=== PATIENT | female | born 1995 | race Caucasian/White ===

== ENCOUNTER 2016-12-29 12:27 | Emergency (ER) | payer MEDICAID ==
[~2016-12-29] VITALS: Ht 152.4 cm; Wt 79.5 kg
[~2016-12-29 12:27] MED LIST: ACET325T33 PO; DICY10CA60 PO; FERR-31 PO; IBUP-1542 PO; LEVO125T75 PO; NITR-58 PO; PNV1TABL43 PO
[2016-12-29 12:43] VITALS: Ht 152.4 cm; Wt 79.5 kg
[2016-12-29] MEDS ORDERED: ONDANSETRON (ODT) 4 MG TAB ODT STA (14:44)
--- NOTE | 2016-12-29 14:44 | ERD ---
ER Documentation Chief Complaint Date/Time DATE: 12/29/16 TIME: 14:40 Chief Complaint HEADACHE ASSOCIATED W NAUSEA X 1 DAY. HX OF MIGRANES HPI 21-year-old female who presented emergency room for frontal sinus headache for 1 day. Stated that she feels nauseous but no vomiting. She also complains of nasal congestion and nonproductive cough for about 2 days. She denies history of migraine on history taking. Stated that her headache started gradually with unknown specific date and time of onset. Stated that she's not sure if she's and if she could get a test. Denies head trauma, this is the worst headache of her life, loss of consciousness, dizziness, blurry vision, changes in vision, photophobia, facial pain, ear pain, throat pain, difficulty swallowing, neck pain, shoulder pain, chest pain, cough, hemoptysis, abdominal pain, back pain, loss of appetite, nausea, vomiting, hematochezia, diarrhea, constipation, urinary symptoms, bladder and bowel incontinences, extremity weakness, extremity tenderness, numbness or tingling sensation, difficulty walking, recent travel, recent exposure to illness, recent antibiotic use in the last 3 months, fever, chills. Allergy: NKDA. PMH: Anemia, thyroid Family medical history: AO LMP: "couple of weeks ago." I'm not sure if I'm ." Medications: Denies. Surgery: Denies. Primary Social History: Not working at this time. Denies smoking, use of alcohol, use of illegal drugs. ROS All systems reviewed and are negative except as per history of present illness. Medications Home Meds Active Scripts Nitrofurantoin Monohyd Macrocr* (Macrobid*) 100 Mg Capsr, 100 MG PO BID for 7 Days, CAP Prov:SUSANGINO C 08/08/16 Ibuprofen* (Motrin*) 600 Mg Tab, 600 MG PO Q6, #30 TAB Prov:SUSANLINUSGINO C 08/08/16 Acetaminophen* (Tylenol*) 325 Mg Tablet, 1 TAB PO Q6 Y for PAIN AND OR ELEVATED TEMP, #20 TAB Prov:ALEXA DENNISON PA-C 06/02/16 Dicyclomine Hcl* (Bentyl*) 10 Mg Capsule, 10 MG PO QID, #30 CAP Prov:ALEXA DENNISON PA-C 06/02/16 Reported Medications Ferrous Sulfate (Iron Supplement) 1 Tab Tablet, 1 TAB PO DAILY 06/26/15 Levothyroxine Sodium* (Levothyroxine Sodium*) 125 Mcg Tablet, 125 MCG PO AC BREAKFAST, TAB 05/28/15 Vit/Fe Fumarate/Fa* ( Vitamin Tablet*) 1 Tab Tablet, 1 TAB PO DAILY, TAB 05/28/15 Allergies Allergies: Coded Allergies: No Known Drug Allergies (Verified Allergy, Unknown, 07/07/15) PMhx/Soc History of Surgery: No Anesthesia Reaction: No Hx Neurological Disorder: No Hx Respiratory Disorders: No Hx Cardiac Disorders: No Hx Psychiatric Problems: No Hx Miscellaneous Medical Probl: No Hx Alcohol Use: No Hx Substance Use: No Hx Tobacco Use: No Physical Exam Vitals Vital Signs Date Time Temp Pulse Resp B/P Pulse Ox O2 Delivery O2 Flow Rate FiO2 12/29/16 12:43 98.2 87 20 117/71 99 Physical Exam CONSTITUTIONAL: Well-appearing; well-nourished; in no apparent distress. HEAD: Normocephalic; atraumatic. EYES: Conjunctiva clear, sclera non-icteric, EOM intact. PERRLA. Ears: Hearing intact. EACs clear, TMs non-bulging, non-inflamed, translucent & mobile, ossicles normal appearance, No obstructions, no erythema, no discharges Nose: No obstructions. No polyps. No external lesions. Mucosa non-inflamed. No external lesions, septum and turbinates normal. No rhinorrhea. No discharges. Frontal sinus is non-tender to palpation. Maxillary sinus is non-tender to palpation. MOUTH: Moist mucous membranes, no lesion, no obstructions, no vesicles, no thrush, patent airway Throat: Uvula in midline. Right tonsil is +1 with no erythema, no exudate. Left tonsil is +1 with no erythema, no exudate. Tolerating secretions well. Good gag reflex. Patent airway. Neck: Supple, without lesions, bruits, or adenopathy. No mass. Thyroid non- enlarged and non-tender to palpation. CHEST: Symmetrical chest. Respirations even and not labored. No retractions noted. CARDIOVASCULAR: Normal S1, S2. RRR. No murmurs, gallops. RESPIRATORY: Normal chest excursion with respiration; breath sounds clear and equal bilaterally; no wheezes, rhonchi, or rales. Breathing even and unlabored. Speaking in clear, full, and complete sentences w/ ease. ABDOMEN: Normal bowel sounds normal. Soft, round, non-distended, non-guarding, no tenderness, no rebound, no organomegaly, no masses, no pulsating abdominal mass. No hernia. No peritoneal signs. : No CVA tenderness. BACK: Symmetrical shoulder. Spine is midline without deformity, tenderness. No evidence of trauma or deformity. PELVIS: Stable pelvis. No evidence of trauma or deformity. MUSCULOSKELETAL: Normal gait and station. No misalignment, asymmetry, crepitation, defects, tenderness, masses, effusions, decreased range of motion, instability, atrophy or abnormal strength or tone in the head, neck, spine, ribs , pelvis or extremities. No calf tenderness. NEUROVASCULAR: Distal pulses are present. Pedal pulse are present, equal, and normal. Capillary refills are < 2 seconds. NEUROLOGIC: Alert and oriented x4. Speaks full and clear sentences. Cranial Nerves II-XII normal. Sensation to pain, touch, and proprioception normal. Grossly unremarkable. No neurologic deficits. Romberg test is negative. PSYCHOLOGICAL: The patients mood and manner are appropriate. No hallucinations , delusions. Not SI. Not HI. Has the capacity to decide for self SKIN: Normal for age and ethnicity; warm; dry; good turgor; no apparent lesions or exudates. No rashes, hives, discoloration. Intact. Results 24 hrs Laboratory Tests Test 12/29/16 14:52 Bedside Urine pH (LAB) 5.5 Bedside Urine Protein (LAB) Negative Bedside Urine Glucose (UA) Negative Bedside Urine Ketones (LAB) Negative Bedside Urine Blood Negative Bedside Urine Nitrite (LAB) Negative Bedside Urine Leukocyte Esterase (L Trace Current Medications Medications (Trade) Dose Ordered Sig/Gavin Route PRN Reason Start Time Stop Time Status Last Admin Dose Admin Acetaminophen (Tylenol Tab) 650 mg ONCE ONCE PO 12/29/16 15:00 12/29/16 15:01 DC 12/29/16 14:44 Meclizine HCl (Antivert) 25 mg ONCE ONCE PO 12/29/16 15:00 12/29/16 15:00 DC 12/29/16 14:44 Ondansetron HCl (Zofran Odt) 4 mg ONCE STAT ODT 12/29/16 14:44 12/29/16 14:45 DC 12/29/16 15:02 Meclizine HCl (Antivert) 25 mg ONCE ONCE PO 12/29/16 15:00 12/29/16 15:01 DC Procedures/MDM Examination: Please see physical examination. Disease process, medical treatment was explained to the patient and family member. They verbalized understanding and agreed with the diagnostic tests, medical treatment, and follow-up care. POC urine : Treatment: Zofran, Tylenol, meclizine. Re-evaluation: Denies headache, dizziness, blurry vision, pain in the right globe, neck pain, shoulder pain, chest pain, abdominal pain. No nausea and vomiting. No neurological deficits. No abdominal tenderness. Romberg test is negative. Consultation: none. Differential diagnosis: Subarachnoid hemorrhage versus migraine versus headache dizziness Medical decision makin-year-old female who presented emergency room for frontal sinus headache for 1 day. Stated that she feels nauseous but no vomiting. She also complains of nasal congestion and nonproductive cough for about 2 days. She denies history of migraine on history taking. Stated that her headache started gradually with unknown specific date and time of onset. Stated that she's not sure if she's and if she could get a test. Patient's complaint, patient's history about her complaint, my physical findings, diagnostic test results, my reevaluation are consistent with my diagnosis of dizziness, headache. Medications prescribed are the following: Tylenol. Zofran. Meclizine. Patient and family member are made aware of the side effects and adverse reactions of the medications prescribed. Instructed on when to seek emergent and medical attention in case allergic/anaphylactic reactions or severe side effects and or adverse reactions to medications. Patient and family member verbalized understanding. Patient instructed Instructed to follow-up with his PCP in 24-48 hours. Instructed to Call 911 for chest pain, shortness of breath. Advised to come back here in ED as soon as possible for severity of symptoms which includes but not limited to: any new symptoms; shortness of breath/difficulty of breathing; cardiovascular changes; severe gastrointestinal symptoms; signs and symptoms of bleeding and or infection; signs of compartment syndrome/neurovascular changes; neurological changes/deficits. Patient and family member verbalized understanding. Upon discharge, patient is alert and oriented x 4, speaks full and clear sentences, denies pain, has no neurological deficits, has no neurovascular deficits, difficulty of breathing. Breathing even and unlabored. Lung sounds are clear to auscultation. Not in distress. Appears comfortable. Ambulatory with steady gait. Appears satisfied with care provided here in ED. Departure Diagnosis: Primary Impression: Headache Condition: Good Additional Instructions: Patient instructed Instructed to follow-up with his PCP in 24-48 hours. Instructed to Call 911 for chest pain, shortness of breath. Advised to come back here in ED as soon as possible for severity of symptoms which includes but not limited to: any new symptoms; shortness of breath/difficulty of breathing; cardiovascular changes; severe gastrointestinal symptoms; signs and symptoms of bleeding and or infection; signs of compartment syndrome/neurovascular changes; neurological changes/deficits. Patient and family member verbalized understanding. SANTOS CALI Dec 29, 2016 14:44
[2016-12-29 14:52] LABS: URINE BLOOD (Dip) POC Negative (NEGATIVE)
[2016-12-29] MEDS ORDERED: MECLIZINE 12.5 MG TAB PO ONE ×2 (15:00)
[2016-12-29] MEDS ORDERED: ACETAMINOPHEN 325 MG TAB PO ONE (15:00)
[2016-12-29] MEDS ORDERED: ONDA4TAB14 PO (15:12)
[2016-12-29] MEDS ORDERED: ACET500C5 PO (15:13)
[2016-12-29] MEDS ORDERED: MECL-77 PO (15:13)
[2016-12-29 15:35] VITALS: BP 123/65; PULSE 80; RESP 18
== END 2016-12-29 15:36 | disposition home or self-care (01) ==
LOC: FTE 12:27
DX: R51 Headache (principal); R11.0 Nausea
CPT/HCPCS: 81003; Z7502; Z7610; 99283

== ENCOUNTER 2017-07-09 11:19 | Emergency (ER) | payer MEDICAID ==
[~2017-07-09] VITALS: Ht 157.5 cm; Wt 83.0 kg
[~2017-07-09 11:19] MED LIST changes: +ACET500C5 PO; +MECL-77 PO; +ONDA4TAB14 PO
[2017-07-09 11:22] VITALS: Ht 157.5 cm; Wt 83.0 kg
[2017-07-09] MEDS ORDERED: ONDANSETRON (ODT) 4 MG TAB ODT STA (12:47)
[2017-07-09] MEDS ORDERED: IBUPROFEN 600 MG TAB PO ONE (13:00)
--- NOTE | 2017-07-09 13:00 | ERD ---
ER Documentation Chief Complaint Chief Complaint HAS SUPRA PUBIC PAIN DIZZINESS AND N/V HPI 21-year-old female presents with suprapubic sharp abdominal pain that woke her up out of sleep earlier this morning associated with dizziness and 2 episodes of nausea vomiting. Took ibuprofen which helped her symptoms. Patient pain states that her pain is localized, and reports associated vomiting that occurred twice this morning which was nonbloody nonbilious, and she has had 2 days of diarrhea. Those have not included blood or mucus. No abnormal vaginal discharge, fevers or chills. ROS All systems reviewed and are negative except as per history of present illness. Medications Home Meds Active Scripts Ondansetron (Ondansetron Odt) 4 Mg Tab.rapdis, 4 MG PO Q6H Y for NAUSEA AND/OR VOMITING, #10 TAB Prov:LIBERTY GARZA PA-C 07/09/17 Dicyclomine Hcl* (Bentyl*) 10 Mg Capsule, 10 MG PO QID, #20 CAP Prov:LIBERTY GARZA PA-C 07/09/17 Metronidazole* (Flagyl*) 500 Mg Tablet, 500 MG PO TID for 7 Days, TAB Prov:LIBERTY GARZA PA-C 07/09/17 Ciprofloxacin Hcl* (Ciprofloxacin Hcl*) 500 Mg Tablet, 500 MG PO BID for 7 Days , TAB Prov:LIBERTY GARZA PA-C 07/09/17 Acetaminophen* (Tylophen*) 500 Mg Capsule, 1 CAP PO Q6H Y for PAIN AND OR ELEVATED TEMP, #20 CAP Prov:SANTOS CALI 12/29/16 Meclizine Hcl* (Meclizine Hcl*) 25 Mg Tablet, 25 MG PO Q8H Y for DIZZINESS, #14 TAB Prov:SANTOS CALI 12/29/16 Ondansetron (Ondansetron Odt) 4 Mg Tab.rapdis, 4 MG PO Q6H Y for NAUSEA AND/OR VOMITING, #20 TAB Prov:SANTOS CALI 12/29/16 Nitrofurantoin Monohyd Macrocr* (Macrobid*) 100 Mg Capsr, 100 MG PO BID for 7 Days, CAP Prov:GINO DAVIS 08/08/16 Ibuprofen* (Motrin*) 600 Mg Tab, 600 MG PO Q6, #30 TAB Prov:GINO DAVIS 08/08/16 Acetaminophen* (Tylenol*) 325 Mg Tablet, 1 TAB PO Q6 Y for PAIN AND OR ELEVATED TEMP, #20 TAB Prov:DENNISONALEXA Stephanie PALACIOS 06/02/16 Dicyclomine Hcl* (Bentyl*) 10 Mg Capsule, 10 MG PO QID, #30 CAP Prov:DENNISONALEXA Brown PA-C 06/02/16 Reported Medications Ferrous Sulfate (Iron Supplement) 1 Tab Tablet, 1 TAB PO DAILY 06/26/15 Levothyroxine Sodium* (Levothyroxine Sodium*) 125 Mcg Tablet, 125 MCG PO AC BREAKFAST, TAB 05/28/15 Vit/Fe Fumarate/Fa* ( Vitamin Tablet*) 1 Tab Tablet, 1 TAB PO DAILY, TAB 05/28/15 Allergies Allergies: Coded Allergies: No Known Drug Allergies (Verified Allergy, Unknown, 07/07/15) PMhx/Soc History of Surgery: No Anesthesia Reaction: No Hx Neurological Disorder: No Hx Respiratory Disorders: No Hx Cardiac Disorders: No Hx Psychiatric Problems: No Hx Miscellaneous Medical Probl: Yes (ANEMIA/THYROID D/S (UNK WHICH ONE)) Hx Alcohol Use: No Hx Substance Use: No Hx Tobacco Use: No Smoking Status: Never smoker Physical Exam Vitals Vital Signs Date Time Temp Pulse Resp B/P Pulse Ox O2 Delivery O2 Flow Rate FiO2 07/09/17 14:57 98.1 87 16 135/70 99 Room Air 07/09/17 11:22 98.0 78 18 107/58 96 Physical Exam General: Well-developed, well-nourished. The patient appears in no acute distress. HEENT: Head is normocephalic, atraumatic. No scleral icterus. Neck: Supple. Nontender. Lungs: Clear to auscultation. Normal air movement. Heart: Regular rate and rhythm. S1 and S2 are normal. No murmurs, gallops, or rubs. Abdomen: Soft, suprapubic tenderness with palpation, there is no rebound pain or guarding, no masses, nondistended. Bowel sounds are normoactive. Extremities: No clubbing or cyanosis. Normal pulses. Moving extremities x 4. No weakness. Neurologic: Alert and oriented 3. No focal deficits. Skin: Normal turgor. No rash or lesions. Result Diagram: 07/09/17 1252 07/09/17 1252 Results 24 hrs Laboratory Tests Test 07/09/17 12:52 07/09/17 12:59 White Blood Count 6.710^3/ul Red Blood Count 4.2010^6/ul Hemoglobin 12.4g/dl Hematocrit 36.9% Mean Corpuscular Volume 87.9fl Mean Corpuscular Hemoglobin 29.5pg Mean Corpuscular Hemoglobin Concent 33.6g/dl Red Cell Distribution Width 13.2% Platelet Count 04273^3/UL Mean Platelet Volume 10.5fl Neutrophils % 51.7% Lymphocytes % 37.9% Monocytes % 7.3% Eosinophils % 2.1% Basophils % 0.7% Nucleated Red Blood Cells % 0.0/100WBC Neutrophils # 3.410^3/ul Lymphocytes # 2.510^3/ul Monocytes # 0.510^3/ul Eosinophils # 0.110^3/ul Basophils # 0.110^3/ul Nucleated Red Blood Cells # 0.010^3/ul Sodium Level 144mmol/L Potassium Level 4.0mmol/L Chloride Level 109mmol/L Carbon Dioxide Level 23mmol/L Anion Gap 16 Blood Urea Nitrogen 9mg/dl Creatinine 0.64mg/dl Glucose Level 91mg/dl Calcium Level 9.2mg/dl Total Bilirubin 0.3mg/dl Direct Bilirubin 0.00mg/dl Indirect Bilirubin 0.3mg/dl Aspartate Amino Transf (AST/SGOT) 26IU/L Alanine Aminotransferase (ALT/SGPT) 27IU/L Alkaline Phosphatase 95IU/L Total Protein 8.0g/dl Albumin 4.5g/dl Globulin 3.50g/dl Albumin/Globulin Ratio 1.28 Lipase 32U/L Serum HCG, Qualitative NEGATIVE Urine Color YELLOW Urine Clarity SLIGHTLY CLOUDY Urine pH 5.0 Urine Specific Rupert 1.030 Urine Ketones NEGATIVEmg/dL Urine Nitrite NEGATIVEmg/dL Urine Bilirubin NEGATIVEmg/dL Urine Urobilinogen NEGATIVEmg/dL Urine Leukocyte Esterase NEGATIVELeu/ul Urine Microscopic RBC 2/HPF Urine Microscopic WBC 2/HPF Urine Squamous Epithelial Cells MODERATE/HPF Urine Bacteria FEW/HPF Urine Mucus MODERATE/HPF Urine Hemoglobin NEGATIVEmg/dL Urine Glucose NEGATIVEmg/dL Urine Total Protein NEGATIVEmg/dl Current Medications Medications (Trade) Dose Ordered Sig/Gavin Route PRN Reason Start Time Stop Time Status Last Admin Dose Admin Ondansetron HCl (Zofran Odt) 4 mg ONCE STAT ODT 07/09/17 12:47 07/09/17 12:48 DC 07/09/17 13:01 Ibuprofen (Motrin) 600 mg ONCE ONCE PO 07/09/17 13:00 07/09/17 13:01 DC 07/09/17 13:01 DIAGNOSTIC IMAGING REPORT Patient: SHAKA GALLEGOS : 1995 Age: 21 Sex: F MR #: [id number] DOS: 07/09/17 1246 Ordering MD: LIBERTY GARZA PA-C Location: [facility] [place] Room/Bed: PROCEDURE: CT Abdomen and pelvis without contrast. CLINICAL INDICATION: Left lower quadrant abdominal pain and suprapubic pain. TECHNIQUE: CT scan of the abdomen and pelvis without contrast was performed on a multidetector high-resolution CT scan. . Coronal and sagittal reformatted images were obtained from the axial source images. Standard CT scan of the abdomen pelvis without contrast protocols were performed. The total exam CTDI equals 20.75 mGy and the total exam DLP equals 1319.14 mGy- cm. One or more of the following dose reduction techniques were used: - Automated exposure control. - Adjustment of the mA and/or kV according to patient size. Use of iterative reconstruction technique. COMPARISON: CT abdomen pelvis 06/02/2016 FINDINGS: The previous epiploic appendagitis involving the left quadrant of the abdomen is no longer seen. There is minimal diverticular changes of the distal descending and proximal sigmoid colon but no CT evidence of diverticulitis. Remainder the colon is unremarkable. The appendix is unremarkable. The stomach and small bowel are unremarkable. There is trace free fluid in the cul-de-sac. No other abdominal free fluid. Negative for intra-abdominal free air, abscess or lymphadenopathy. Note however that there are multiple prominent nonspecific lymph nodes in the right lower quadrant mesentery may represent mesenteric lymphadenitis. The kidneys are normal in size without calcified renal calculi hydronephrosis or intra renal masses bilaterally. Urinary bladder is unremarkable. The uterus and a. Anteflexed but otherwise unremarkable. No adnexal masses. The liver spleen pancreas adrenal glands and gallbladder are unremarkable. No evidence of biliary ductal dilation. The aorta unremarkable. Abdominal pelvic wall unremarkable. Lung bases unremarkable. Osseous structures are unremarkable. IMPRESSION: 1. Trace fluid in the cul-de-sac without other abdominal free fluid, free air, abscesses or lymphadenopathy. 2. Prominent multiple nonspecific lymph nodes in the right lower quadrant of the abdomen may represent mesenteric lymphadenitis. 3. Minimal diverticular changes of the distal descending and proximal sigmoid colon but no CT evidence of diverticulitis. Unremarkable appendix. 4. No calcified urinary calculi or obstructive uropathy. RPTAT:AAJJ Physician Bran Date Time Electronically viewed and signed by Physician Bran on 07/09/2017 13:43 BM/ Procedures/MDM Course: She was given ibuprofen 600 mg, Zofran 4 mg ODT. Medical decision makin-year-old female presents with sharp suprapubic abdominal pain with vomiting and diarrhea patient CT abdomen pelvis shows diverticular changes, without evidence of diverticulitis, no abscess, perforation, no evidence of appendicitis, with associated lymphadenopathy in the right lower quadrant. Given that patient is symptomatic with diarrhea with left lower quadrant pain, patient will be treated with for early diverticulitis. She at this time is afebrile, stable with controlled pain, and is stable for outpatient management. The case was reviewed and discussed with Dr. Cazares who agrees with the plan of care including labs, treatment, and advanced imaging as appropriate. Departure Diagnosis: Primary Impression: Diarrhea Additional Impression: Abdominal pain Condition: LIBERTY Lieberman PA-C Jul 09, 2017 13:00
[2017-07-09 13:29] LABS: BASOPHIL # 0.1 10^3/ul (0.0-0.1); BASOPHILS % 0.7 % (0.0-2.0); EOSINOPHILS # 0.1 10^3/ul (0.0-0.5); EOSINOPHILS % 2.1 % (0.0-7.0); HEMATOCRIT 36.9 % (37.0-47.0); HEMOGLOBIN 12.4 g/dl (12.0-16.0); LYMPHOCYTES # 2.5 10^3/ul (0.8-2.9); LYMPHOCYTES % 37.9 % (15.0-51.0); MEAN CORPUSCULAR HEMOGLOBIN 29.5 pg (29.0-33.0); MEAN CORPUSCULAR HGB CONC 33.6 g/dl (32.0-37.0); MEAN CORPUSCULAR VOLUME 87.9 fl (82.0-101.0); MEAN PLATELET VOLUME 10.5 fl (7.4-10.4); MONOCYTE # 0.5 10^3/ul (0.3-0.9); MONOCYTES % 7.3 % (0.0-11.0); NEUTROPHIL # 3.4 10^3/ul (1.6-7.5); NEUTROPHILS % 51.7 % (39.0-77.0); PLATELET COUNT 325 10^3/UL (140-415); RED CELL DISTRIBUTION WIDTH 13.2 % (11.5-14.5); WHITE BLOOD COUNT 6.7 10^3/ul (4.8-10.8)
--- NOTE | 2017-07-09 13:43 | RADRPT ---
PROCEDURE: CT Abdomen and pelvis without contrast. CLINICAL INDICATION: Left lower quadrant abdominal pain and suprapubic pain. TECHNIQUE: CT scan of the abdomen and pelvis without contrast was performed on a multidetector hig h-resolution CT scan. . Coronal and sagittal reformatted images were obtained from the axial [facility] e images. Standard CT scan of the abdomen pelvis without contrast protocols were performed. The total exam CTDI equals 20.75 mGy and the total exam DLP equals 1319.14 mGy-cm. One or more of the following dose reduction techniques were used: - Automated exposure control. - Adjustment of the mA and/or kV according to patient size. Use of iterative reconstruction technique. COMPARISON: CT abdomen pelvis 06/02/2016 FINDINGS: The previous epiploic appendagitis involving the left quadrant of the abdomen is no longer seen. The re is minimal diverticular changes of the distal descending and proximal sigmoid colon but no CT dottie dence of diverticulitis. Remainder the colon is unremarkable. The appendix is unremarkable. The stom ach and small bowel are unremarkable. There is trace free fluid in the cul-de-sac. No other abdominal free fluid. Negative for intra-abdom inal free air, abscess or lymphadenopathy. Note however that there are multiple prominent nonspecifi c lymph nodes in the right lower quadrant mesentery may represent mesenteric lymphadenitis. The kidneys are normal in size without calcified renal calculi hydronephrosis or intra renal masses bilaterally. Urinary bladder is unremarkable. The uterus and a. Anteflexed but otherwise unremarkable. No adnexal masses. The liver spleen pancreas adrenal glands and gallbladder are unremarkable. No evidence of biliary du ctal dilation. The aorta unremarkable. Abdominal pelvic wall unremarkable. Lung bases unremarkable. Osseous structu res are unremarkable. IMPRESSION: 1. Trace fluid in the cul-de-sac without other abdominal free fluid, free air, abscesses or lymphad enopathy. 2. Prominent multiple nonspecific lymph nodes in the right lower quadrant of the abdomen may repres ent mesenteric lymphadenitis. 3. Minimal diverticular changes of the distal descending and proximal sigmoid colon but no CT evide nce of diverticulitis. Unremarkable appendix. 4. No calcified urinary calculi or obstructive uropathy. RPTAT:AAJJ Greg Fernandez Physician Date Time Electronically viewed and signed by Greg Fernandez Physician on 07/09/2017 13:43 BM/
[2017-07-09 13:52] LABS: ALBUMIN 4.5 g/dl (3.3-4.9); ALBUMIN/GLOBULIN RATIO 1.28; BILIRUBIN,INDIRECT 0.3 mg/dl (0-1.1); BILIRUBIN,TOTAL 0.3 mg/dl (0.2-1.3); CALCIUM 9.2 mg/dl (8.4-10.2); CREATININE 0.64 mg/dl (0.44-1.00)
[2017-07-09 14:11] LABS: ADD UMIC NO; UR ASCORBIC ACID NEGATIVE (NEGATIVE); UR BACTERIA FEW /HPF (NONE SEEN); UR BILIRUBIN (Dip) NEGATIVE (NEGATIVE); UR BLOOD (Dip) NEGATIVE (NEGATIVE); UR CLARITY SLIGHTLY CLOUDY (CLEAR); UR COLOR YELLOW (YELLOW); UR GLUCOSE (Dip) NEGATIVE (NEGATIVE); UR KETONES (Dip) NEGATIVE (NEGATIVE); UR LEUKOCYTE ESTERASE (Dip) NEGATIVE Leu/ul (NEGATIVE); UR MUCUS MODERATE /HPF (NONE SEEN); UR NITRITE (Dip) NEGATIVE (NEGATIVE); UR RBC 2 /HPF (0-5); UR SQUAMOUS EPITHELIAL CELL MODERATE /HPF (FEW); UR TOTAL PROTEIN (Dip) NEGATIVE (NEGATIVE); UR UROBILINOGEN (Dip) NEGATIVE (NEGATIVE)
[2017-07-09] MEDS ORDERED: DICY10CA60 PO (14:41)
[2017-07-09] MEDS ORDERED: METR500T PO (14:41)
[2017-07-09] MEDS ORDERED: CIPR500T4 PO (14:41)
[2017-07-09] MEDS ORDERED: ONDA4TAB14 PO (14:41)
[2017-07-09 14:57] VITALS: BP 135/70; PULSE 87; RESP 16; TEMP 98.1
== END 2017-07-09 14:58 | disposition home or self-care (01) ==
LOC: FTE 11:19
DX: R19.7 Diarrhea, unspecified (principal)
CPT/HCPCS: 36415; 74176; 80053; 81001; 83690; 84703; 85025; Z7502; Z7610; 81003

== ENCOUNTER 2017-10-02 17:56 | Emergency (ER) | END 2017-10-02 21:49 | disposition home or self-care (01) ==

== ENCOUNTER 2018-03-30 17:45 | Emergency (ER) | END 2018-03-30 21:01 | disposition home or self-care (01) ==

== ENCOUNTER 2018-06-02 17:42 | Outpatient (CLI) | END 2018-06-03 00:30 | disposition home or self-care (01) ==

== ENCOUNTER 2018-07-01 19:33 | Outpatient (CLI) | END 2018-07-01 23:00 | disposition home or self-care (01) ==

== ENCOUNTER 2018-08-21 17:45 | Outpatient (CLI) | END 2018-08-21 21:36 | disposition home or self-care (01) ==

== ENCOUNTER 2018-08-23 09:57 | Inpatient (IN) | END 2018-08-25 14:25 | disposition home or self-care (01) | DRG 788 ==

== ENCOUNTER 2019-01-05 14:59 | Emergency (ER) | payer OTHER ==
[~2019-01-05] VITALS: Ht 152.4 cm; Wt 87.0 kg
[~2019-01-05 14:59] MED LIST changes: -ACET325T33 PO; -ACET500C5 PO; -DICY10CA60 PO; -FERR-31 PO; -IBUP-1542 PO; -LEVO125T75 PO; +LEVO200T6 PO; -MECL-77 PO; -NITR-58 PO; -ONDA4TAB14 PO
[2019-01-05 15:09] VITALS: BP 112/59; PULSE 84; RESP 19; Ht 152.4 cm; Wt 87.0 kg
[2019-01-05] MEDS ORDERED: SOD CHLORIDE 0.9% 1,000 ML IV STA (16:01)
[2019-01-05] MEDS ORDERED: METOCLOPRAMIDE 10 MG INJ IV STA (16:01)
[2019-01-05] MEDS ORDERED: METO10TA92 PO (17:01)
--- NOTE | 2019-01-05 17:05 | ERD ---
ER Documentation Chief Complaint Chief Complaint GENERALIZED ABD PAIN, NAUSEA SINCE THIS AM ; LMP 10/28/18 HPI 23-year-old female presents with vomiting and epigastric pain since this morning. Vomit is nonbilious nonbloody. She is approximately 8 weeks by dates. She has vaginal bleeding or lower abdominal pain or urinary complaints. She is a G2 para 1. ROS All systems reviewed and are negative except as per history of present illness. Medications Home Meds Active Scripts Metoclopramide* (Reglan*) 10 Mg Tablet, 10 MG PO Q6 PRN for NAUSEA AND/OR VOMITING, #20 TAB Prov:GIANNA COVARRUBIAS MD 01/05/19 Reported Medications Levothyroxine Sodium* (Levothyroxine Sodium*) 200 Mcg Tablet, 200 MCG PO BEFORE BREAKFAST, #30 TAB 08/23/18 Vit/Fe Fumarate/Fa* ( Vitamin Tablet*) 1 Tab Tablet, 1 TAB PO DAILY, TAB 05/28/15 Allergies Allergies: Coded Allergies: No Known Drug Allergies (Verified Allergy, Unknown, 01/05/19) PMhx/Soc History of Surgery: Yes ( ) Anesthesia Reaction: No Hx Neurological Disorder: No Hx Respiratory Disorders: No Hx Cardiac Disorders: No Hx Psychiatric Problems: No Hx Miscellaneous Medical Probl: Yes (ANEMIA , hypothyroid ) Hx Alcohol Use: No Hx Substance Use: No Hx Tobacco Use: No Smoking Status: Never smoker FmHx Family History: No diabetes, No coronary disease, No other Physical Exam Vitals Vital Signs Date Temp Pulse Resp B/P (MAP) Pulse Ox O2 O2 Flow FiO2 Time Delivery Rate 01/05/19 84 19 112/59 97 15:09 (76) Physical Exam Const: No acute distress Head: Atraumatic Eyes: Normal Conjunctiva ENT: Normal External Ears, Nose and Mouth. Neck: Full range of motion. No meningismus. Resp: Clear to auscultation bilaterally Cardio: Regular rate and rhythm, no murmurs Abd: Soft, minimal epigastric tenderness. No tenderness McBurney's point no Harrington sign., non distended. Normal bowel sounds Skin: No petechiae or rashes Back: No midline or flank tenderness Ext: No cyanosis, or edema Neur: Awake and alert Psych: Normal Mood and Affect Result Diagram: 01/05/19 1628 01/05/19 1628 Results 24 hrs Laboratory Tests Test 01/05/19 16:19 01/05/19 16:28 POC Beta HCG, Qualitative POSITIVE White Blood Count 10.2 10^3/ul Red Blood Count 4.70 10^6/ul Hemoglobin 12.5 g/dl Hematocrit 38.5 % Mean Corpuscular Volume 81.9 fl Mean Corpuscular Hemoglobin 26.6 pg Mean Corpuscular Hemoglobin Concent 32.5 g/dl Red Cell Distribution Width 14.8 % Platelet Count 372 10^3/UL Mean Platelet Volume 11.1 fl Immature Granulocytes % 0.300 % Neutrophils % 75.6 % Lymphocytes % 16.9 % Monocytes % 5.7 % Eosinophils % 1.3 % Basophils % 0.2 % Nucleated Red Blood Cells % 0.0 /100WBC Immature Granulocytes # 0.030 10^3/ul Neutrophils # 7.7 10^3/ul Lymphocytes # 1.7 10^3/ul Monocytes # 0.6 10^3/ul Eosinophils # 0.1 10^3/ul Basophils # 0.0 10^3/ul Nucleated Red Blood Cells # 0.0 10^3/ul Urine Color YELLOW Urine Clarity SLIGHTLY CLOUDY Urine pH 6.0 Urine Specific [place] 1.020 Urine Ketones 1+ mg/dL Urine Nitrite NEGATIVE mg/dL Urine Bilirubin NEGATIVE mg/dL Urine Urobilinogen NEGATIVE mg/dL Urine Leukocyte Esterase NEGATIVE [place]/ul Urine Microscopic RBC 1 /HPF Urine Microscopic WBC 1 /HPF Urine Squamous Epithelial Cells FEW /HPF Urine Hemoglobin NEGATIVE mg/dL Urine Glucose NEGATIVE mg/dL Urine Total Protein NEGATIVE mg/dl Sodium Level 138 mmol/L Potassium Level 3.9 mmol/L Chloride Level 102 mmol/L Carbon Dioxide Level 22 mmol/L Anion Gap 14 Blood Urea Nitrogen 7 mg/dl Creatinine 0.42 mg/dl Est Glomerular Filtrat Rate mL/min > 60 mL/min Glucose Level 86 mg/dl Calcium Level 9.9 mg/dl Total Bilirubin 0.3 mg/dl Direct Bilirubin 0.00 mg/dl Indirect Bilirubin 0.3 mg/dl Aspartate Amino Transf (AST/SGOT) 38 IU/L Alanine Aminotransferase (ALT/SGPT) 20 IU/L Alkaline Phosphatase 81 IU/L Total Protein 8.4 g/dl Albumin 4.6 g/dl Globulin 3.80 g/dl Albumin/Globulin Ratio 1.21 Lipase 27 U/L Current Medications Medications Dose Sig/Gavin Start Time Status Last (Trade) Ordered Route PRN Stop Time Admin Dose Reason Admin Sodium 1,000 ml @ Q1H STAT 01/05/19 DC 01/05/19 Chloride 1,000 mls/hr IV 16:01 16:31 01/05/19 17:00 10 mg ONCE STAT 01/05/19 DC 01/05/19 Metoclopramid IV 16:01 16:31 e HCl 01/05/19 16:02 (Reglan) Procedures/MDM Urine shows trace ketones but otherwise no acute abnormalities. CBC and CMP showed no acute abnormalities. Patient was given Reglan 10 mg IV, 1 L normal saline IV. Patient had a reassuring abdominal exam on serial exam. Patient presents with vomiting and epigastric pain for 1 day. She may have self-limited foodborne illness or viral gastroenteritis. She has no current signs or symptoms of significant abdominal pain, vaginal bleeding to suggest complications of . She feels better after observation and treatment. She will be discharged home with a prescription of Reglan, recommendations for primary care follow-up and return precautions. The patient was stable with no new complaints during the ER course. Clinically, there is no current evidence to suggest meningitis, sepsis, acute abdomen, pneumonia, stroke, acute coronary syndrome, pulmonary embolism, aortic dissection or any other emergent condition appearing to require further evaluation or hospitalization. Patient counseled regarding my diagnostic impression and care plan. Prior to discharge all questions answered. Pt agrees with treatment plan and understands strict return precautions. Pt is instructed to follow up with primary care provider within 24- 48 hours. Precautionary instructions provided including instructions to return to the ER if not improving or for any worsening or changing symptoms or concerns. Departure Diagnosis: Primary Impression: Vomiting Vomiting type: unspecified Vomiting Intractability: unspecified Nausea presence: unspecified Qualified Codes: R11.10 - Vomiting, unspecified Condition: Stable Patient Instructions: Vomiting (4Y-Adult) Referrals: [facility] PROYECT[facility] ALESSANDRO LUBIN (PCP) Additional Instructions: May be self-limited foodborne illness or viral infection. Recheck for fevers, vomiting despite treatment, pain, bleeding, new worsening symptoms. See OB for follow-up. GIANNA COVARRUBIAS MD Jan 05, 2019 17:05
== END 2019-01-05 17:32 | disposition home or self-care (01) ==
LOC: FTE 14:59
DX: O21.9 Vomiting of pregnancy, unspecified (principal); O99.281 Endocrine, nutritional and metabolic diseases complicating pregnancy, first trimester; E03.9 Hypothyroidism, unspecified; Z3A.08 8 weeks gestation of pregnancy
CPT/HCPCS: 36415; 80053; 81001; 81025; 83690; 85025; 96361; 96374; J2765; J7030; Z7502; 81003

== ENCOUNTER 2019-05-15 11:03 | Outpatient (CLI) | payer OTHER ==
[~2019-05-15] VITALS: Ht 152.4 cm; Wt 88.0 kg
[~2019-05-15 11:03] MED LIST changes: +METO10TA92 PO
[2019-05-15 11:23] VITALS: Ht 152.4 cm; Wt 88.0 kg
[2019-05-15 11:28] VITALS: BP 109/55; PULSE 84; RESP 20
[2019-05-15] MEDS ORDERED: ACETAMINOPHEN 500 MG TAB PO STA (11:29)
[2019-05-15] MEDS ORDERED: LACTATED RINGER'S 1,000 ML IV SCH (12:00)
== END 2019-05-15 14:05 | disposition home or self-care (01) ==
LOC: OBT 11:03 → L-D 11:04 → OBT 14:05
PROVIDERS: ATTEND Obstetrics & Gynecology
DX: O26.893 Other specified pregnancy related conditions, third trimester (principal); R42 Dizziness and giddiness; Z3A.28 28 weeks gestation of pregnancy
CPT/HCPCS: 36415; 76815; 76817; 76818; 80053; 81001; 84560; 85025; 96360; 96361; J7120; Z7500; G0463

== ENCOUNTER 2019-06-07 18:30 | Outpatient (CLI) | payer OTHER ==
[~2019-06-07] VITALS: Ht 152.4 cm; Wt 88.1 kg
[2019-06-07 19:04] VITALS: BP 104/52; PULSE 77; RESP 18
[2019-06-07 19:05] VITALS: Ht 152.4 cm; Wt 88.1 kg
== END 2019-06-07 20:10 | disposition home or self-care (01) ==
LOC: OBT 18:30 → L-D 18:33 → OBT 20:10
PROVIDERS: ATTEND Obstetrics & Gynecology
DX: O36.8130 Decreased fetal movements, third trimester, not applicable or unspecified (principal); Z3A.32 32 weeks gestation of pregnancy
CPT/HCPCS: 76817; 76818